=== PATIENT | female | born 1965 | race Caucasian/White ===

== ENCOUNTER 2021-02-13 16:41 | Outpatient (REF) | payer BC, SELFPAY ==
[2021-02-13 17:30] LABS: Influenza A PCR NEGATIVE (Negative); Influenza B PCR NEGATIVE (Negative); Resp Syncy Virus RNA Qual PCR NEGATIVE (Negative); SARS COV2 PCR INHOUSE NEGATIVE (Negative)
== END 2021-02-13 16:42 | disposition home or self-care (01) ==
LOC: HO.LNP 16:41
PROVIDERS: Visit Provider Physician Assistant
DX: Z20.822 Contact with and (suspected) exposure to COVID-19 (principal)
CPT/HCPCS: 0241U

== ENCOUNTER 2022-12-15 10:17 | Emergency (ER) | payer BC, SELFPAY ==
--- NOTE | ~2022-12-15 | XR_ITS ---
EXAMINATION: XR SHOULDER, LEFT CLINICAL INFORMATION: Pain COMPARISON: None available. TECHNIQUE: Three views of the left shoulder. FINDINGS: No acute fracture, subluxation or suspicious focal lesion. No abnormal erosion. Equivocal trace soft tissue calcification. Trace linear opacity in the periphery of the left midlung could be atelectasis. XR/XR shoulder LT min 2V IMPRESSION: No fracture or subluxation. Equivocal trace calcific tendinitis
[2022-12-15 10:19] VITALS: BP 158/86; PULSE 98; RESP 18; TEMP 36.8; O2SAT 97; BMI 30.3
--- NOTE | 2022-12-15 10:44 | ED.EXTPRO ---
HPI - Extremity Problem General Chief complaint: Extremity Injury, Upper Stated complaint: L shoulder pain Time Seen by Provider: 12/15/22 10:43 Source: patient, RN notes reviewed and old records reviewed Mode of arrival: ambulatory History of Present Illness HPI Narrative: 57-year-old female with a past medical history of frozen shoulder presenting to the ED complaining of left neck/trapezius pain radiating to left shoulder since waking yesterday morning. Reports pain worse with movement and palpation. Admits to intermittent paresthesias. Took 800mg of Motrin without relief. Admits symptoms are similar to prior frozen shoulder however persistent. Denies known injury/trauma or fall, numbness, weakness, chest pain/shortness of breath, [place] Complaint: extremity pain Related Data Home Medications Medication Instructions Recorded Confirmed No Known Home Meds 02/13/21 02/13/21 Allergies Allergy/AdvReac Type Severity Reaction Status Date / Time codeine Allergy Mild sensativity Verified 12/15/22 10:24 Review of Systems Review of Systems: Constitutional: No Fever, No Chills ENT/Mouth: No Ear Pain, No Nasal Congestion, No sore throat, No Rhinorrhea, No Swallowing Difficulty Cardiovascular: No Chest Pain, No SOB Respiratory: No Cough, No Sputum Gastrointestinal: No Nausea, No Vomiting, No Diarrhea, No Constipation, No Abdominal pain Genitourinary: No Dysuria, No Urinary Frequency, No Flank Pain Musculoskeletal: +joint pain, No Myalgias, No Joint Swelling Skin: No Skin Lesions, No rash Neuro: No Weakness, No Numbness, + Paresthesias Yes all other systems are reviewed and are negative Constitutional: Constitutional: Reports as per [facility] Past Medical History Attestation statement: The following information was validated with the patient. Source: old records reviewed Social History Social History Patient Tobacco Use Status: Never used Tobacco Advance Directives: No Advance Directives Information Provided: No Physical Exam Vital Signs: Vital Signs: Last Vital Signs Temp 98.2 F 12/15/22 10:19 Pulse 98 12/15/22 10:19 Resp 18 12/15/22 10:19 BP 158/86 H 12/15/22 10:19 Pulse Ox 97 12/15/22 10:19 O2 Del Method Room Air 12/15/22 10:19 BMI result Body Mass Index 30.3 Const: General: cooperative, healthy appearing and no acute distress Orientation/consciousness: patient oriented x3 Limitations: no limitations HEENT: Head: Yes normal to inspection and Yes atraumatic Ears: hearing grossly normal bilaterally General nose exam: Normal external nose present Face and sinus: Yes normal facial exam Eyes: General: appearance normal, both eyes and all related structures EOM: EOMs intact bilaterally Neck: Other: No midline cervical spinous tenderness. + left-sided cervical paraspinal and trapezius muscle tenderness to palpation reproducing subjective complaints Neck: Yes normal visual inspection, Yes no meningeal signs, No anterior neck swelling and No torticollis Resp: Effort & Inspection: normal respiratory effort and no respiratory distress Cardio: Rate: regular rate Peripheral pulses: radial pulses present and ulnar radial pulses present Back/Spine/Pelvis: Other: No midline cervical/thoracic/lumbar spinous tenderness/step-off or deformity Skin: Rashes: no rashes Wounds: no wounds Neuro: General: patient oriented x3, tone normal and no meningeal signs Cranial nerves: Yes CN's II-XII intact bilaterally Gait exam (Neuro): Normal gait present Extrem: Other: Left shoulder without noted deformity. +deltoid tenderness. No erythema/swelling. Pain elicited with ROM > abduction. NV intact distally General: Yes normal to inspection Course Course Course Narrative: XR shoulder LT min 2V IMPRESSION: No fracture or subluxation. Equivocal trace calcific tendinitis Results discussed with patient including worrisome signs and symptoms and strict return precautions, and when to return to the emergency department. They verbalized understanding and feel safe for discharge at this time. Medical Decision Making Medical Decision Making MDM Narrative: 57-year-old female with a past medical history of frozen shoulder presenting to the ED complaining of left neck/trapezius pain radiating to left shoulder since waking yesterday morning. On exam vital signs stable, NAD, nontoxic appearing, no midline spinous tenderness, + left-sided cervical paraspinal and left trapezius/left shoulder tenderness to palpation. ROM intact with pain. Neurovascularly intact. Concern for MSK pain/strain and spasming vs tendinitis or bursitis. Low suspicion for fracture, frozen shoulder, shoulder separation or septic joint. Lower suspicion for ACS plan: EKG, x-ray Please refer to course for remaining clinical decision making, interpretation of labs/imaging results, and discussions with consultants and/or family members. Differential Diagnosis Differential Diagnoses: The differential diagnosis associated with the presentation includes As above Independent Interpretation I performed an independent interpretation of an: EKG (My interpretation EKG is normal sinus rhythm at a rate of 85. QRS 90. QTC 428. No STEMI. No available priors to compare ) Radiology Impression Discussion of test interpretation with radiology: I have reviewed the radiologist's reading. External Record Review External record reviewed: Inpatient record, Office record, Outpatient record, Prior outpatient labs, Prior outpatient radiology, Primary care record and Outside ED record Tests considered The following testing was considered but not selected: As above Prescription Management I considered prescription management with: Pain Medication Discharge Plan Discharge Clinical Impression: Acute shoulder pain Patient Disposition: Home, Self-Care Instructions: Shoulder Pain (ED) Additional Instructions: Your pain is likely musculoskeletal Flexeril is a muscle relaxer, take at night as it makes you drowsy, do not drive, drink alcohol, or operate machinery while taking it Continue taking Motrin & Lidoderm patches In addition take Tylenol at home If symptoms persist or worsen, pain becomes unbearable, you developed urinary retention or incontinence, or weakness return to the ED Prescriptions: No Action No Known Home Meds Referrals: [facility] [Provider Group]
--- NOTE | 2022-12-15 10:51 | ECG_ITS ---
Test Reason : L SHOULDER PAIN Blood Pressure : / mmHG Vent. Rate : 085 BPM Atrial Rate : 085 BPM P-R Int : 158 ms QRS Dur : 090 ms QT Int : 360 ms P-R-T Axes : 034 -19 003 degrees QTc Int : 428 ms Normal sinus rhythm Normal ECG No previous ECGs available Referred By: Jennifer Moore Electronically Signed By:LANDON ÁLVAREZ MD
== END 2022-12-15 12:24 | disposition home or self-care (01) ==
PROVIDERS: Emergency Provider Internal Medicine; PCP Internal Medicine
DX: M25.512 Pain in left shoulder (principal)
CPT/HCPCS: 73030; 93005; 99283; 99284

== ENCOUNTER 2023-06-02 13:22 | Emergency (ER) | payer OTHER, SELFPAY ==
--- NOTE | ~2023-06-02 | XR_ITS ---
EXAMINATION: XR CHEST CLINICAL INFORMATION: Left posterior chest/shoulder discomfort. Chest pain. COMPARISON: None available. TECHNIQUE: Frontal view of the chest was obtained. FINDINGS: Slightly rotated positioning. Cardiac and mediastinal silhouette is within normal limits, accounting for positioning/technique. Slight elevation of the right hemidiaphragm. Linear opacities in bilateral lower lungs, could reflect atelectasis/scarring. Mild bronchovascular crowding in the medial aspect of the right lower lung, with mild hazy opacities which could reflect atelectasis or infiltrate. No effusion. No pulmonary edema. No significant pneumothorax is identified. No acute displaced rib fractures seen. XR/XR chest 1V IMPRESSION: Linear opacities in bilateral lower lungs could reflect atelectasis/scarring. Mild right lower lung bronchovascular crowding with hazy opacities which could reflect atelectasis or infiltrate.
--- NOTE | ~2023-06-02 | XR_ITS ---
EXAMINATION: XR SHOULDER, LEFT CLINICAL INFORMATION: Shoulder discomfort COMPARISON: X-ray 12/15/2022 TECHNIQUE: AP external rotation, Grashey, scapular Y, and axillary views of the left shoulder. FINDINGS: No acute fracture or dislocation. Glenohumeral and acromioclavicular alignment is anatomic with normal joint space. No soft tissue calcification seen. Previously seen trace calcification superior to the greater tuberosity is not clearly visualized in today's study.. XR/XR shoulder LT min 2V IMPRESSION: No evidence of acute osseous abnormality.
[2023-06-02 13:42] VITALS: BP 151/87; PULSE 108; RESP 20; TEMP 37.1; O2SAT 98; BMI 34.7
--- NOTE | 2023-06-02 13:49 | ECG_ITS ---
Test Reason : CHEST PAIN Blood Pressure : / mmHG Vent. Rate : 102 BPM Atrial Rate : 102 BPM P-R Int : 156 ms QRS Dur : 072 ms QT Int : 306 ms P-R-T Axes : 027 -15 -13 degrees QTc Int : 398 ms Sinus tachycardia Anterolateral infarct , age undetermined Abnormal ECG When compared with ECG of 15-DEC-2022 10:57, Anterolateral infarct is now Present Nonspecific T wave abnormality now evident in Lateral leads Referred By: Jose Varner Electronically Signed By:Hang Arzola
--- NOTE | 2023-06-02 13:59 | ED.GENADULT ---
HPI - General Adult General Chief complaint: Chest Pain Stated complaint: L shoulder/arm pain no inj Time Seen by Provider: 06/02/23 16:05 Source: patient, RN notes reviewed and old records reviewed Mode of arrival: ambulatory Limitations: no limitations History of Present Illness HPI narrative: 58-year-old female presents for evaluation of left shoulder pain. She reports the pain started at 10:30 a.m. this morning while she was sitting in nondenominational The pain is worse with turning her head to the left and taking a deep breath The pain radiates to her left upper back and her left chest Currently the patient's pain is 6/10 She denies any history of coronary artery disease. She states that yesterday she was lifting a ?100 lb Scrabble board that is a decorations. ? Denies any fevers, chills, coughing Related Data Previous Rx's ?Medication ?Instructions ?Recorded acetaminophen 500 mg tablet 500 mg PO Q6H PRN fever or pain 12/15/22 (Tylenol Extra Strength) #14 tabs cyclobenzaprine 5 mg tablet 5 mg PO Q8H PRN pain (scale score 12/15/22 7-10) 5 days #14 tabs lidocaine 5 % topical patch 1 patch topical DAILY PRN pain #30 12/15/22 (Lidoderm) ea azithromycin 250 mg tablet See Rx Instructions PO .COMPLEX #6 06/02/23 tabs Allergies Allergy/AdvReac Type Severity Reaction Status Date / Time codeine Allergy Mild sensativity Verified 06/02/23 13:49 Review of Systems Constitutional: Constitutional: Denies body ache(s), Denies chills and Denies fever(s) ENT: Denies vertigo, Denies dizziness and Denies sore throat Cardiovascular: Cardiovascular: Reports chest pain and Denies dyspnea Respiratory: Respiratory: Denies cough, Reports pain on inspiration and Denies dyspnea Gastrointestinal: Gastrointestinal: Denies abdominal pain, Denies nausea and Denies vomiting Musculoskeletal: Musculoskeletal: Reports back pain, Reports limited range of motion and Reports radiating pain into limb Integumentary/Breasts: Skin/Breast: Denies rash Neurologic: Denies vertigo and Denies dizziness PMFSH Social History Social History Patient Tobacco Use Status: Never used Tobacco Smoked in Last 30 Days: No Advance Directives: No Advance Directives Information Provided: No Physical Exam ED Vital Signs: Vital Signs - 24 hr 06/02/23 13:42 06/02/23 15:25 06/02/23 18:00 Temperature 98.8 F 98.6 F 98.5 F Pulse Rate 108 H 110 H 118 H Respiratory Rate 20 16 16 Blood Pressure 151/87 H 166/96 H 149/96 H Pulse Oximetry 98 95 95 Oxygen Delivery Method Room Air Room Air Room Air 06/02/23 18:06 Temperature 98.5 F Pulse Rate 118 H Respiratory Rate 16 Blood Pressure 149/96 H Pulse Oximetry 95 Oxygen Delivery Method Room Air BMI result Body Mass Index 34.7 Const General: healthy appearing, comfortable, no acute distress, alert and awake Nutritional Appearance: well nourished Orientation/consciousness: patient oriented x3 HENMT Head: Yes normocephalic and Yes atraumatic Eyes Eyelids: Yes eyelids normal Conjunctivae: conjunctivae normal Sclerae: sclerae normal Corneas: corneas normal Pupils: Equal, round and reactive pupils present EOM: EOMs intact bilaterally Neck Neck: Yes full ROM Chest Other: Nontender to palpation in the left chest wall Chest palpation & inspection: normal inspection of the chest and no crepitus Resp Effort & Inspection: normal respiratory effort, able to speak in complete sentences, no audible wheezes and not labored Auscultation: clear to auscultation bilaterally Cardio Rate: regular rate Rhythm: regular rhythm GI Inspection: No distended Palpation (GI): Soft to palpation, not firm, nontender, no guarding and not rigid Back/Spine/Pelvis Other: There is no tenderness to the left trapezius muscle group or left shoulder.. However, pain is elicited in these areas with the patient rotating her head to the left Skin General skin exam: elasticity normal Neuro General: patient oriented x3 Cranial nerves: Yes Equal, round and reactive pupils present and Yes Bilaterally intact EOM present Cognition (Neuro): normal cognition Extrem Other: Moving all extremities well without any obvious deformities Course Course Course Narrative: RME: 58-year-old female presents to ED for left shoulder pain radiating down left arm and into left chest described as tingling and pain on range of motion. Patient denies any history of heart attack diabetes high blood pressure. Due to age labs EKG troponins ordered. Reevaluation(s) Reevaluation #1: Patient's repeat troponin is also undetectable. She has no respiratory symptoms. However given that her x-ray showed possible atelectasis versus infiltrate in the right lower lobe, will prescribe the patient a Z-Daniel. I encouraged the patient to avoid starting it unless she develops fever, cough or shortness of breath. She will follow-up with the doctor regarding her mildly elevated high blood pressure Time: 17:49 Medications Administered Discontinued Medications Generic Name Dose Route Start Last Admin Trade Name Janeen PRN Reason Stop Dose Admin Ibuprofen 600 mg 06/02/23 16:53 06/02/23 17:06 Ibuprofen 600 Mg Tablet PO 06/02/23 16:54 600 mg ONCE ONE Administration Medical Decision Making Medical Decision Making [facility] Narrative: 58-year-old female presents for evaluation of chest pain. Her pain is reproducible with movement but not palpation. Initial EKG shows sinus tachycardia to [address] segment elevations or depressions. History and exam is most consistent musculoskeletal origin. Initial troponin negative, chest x-ray shows mild right lower lobe atelectasis versus infiltrate. She has no respiratory symptoms. I have a low suspicion that pneumonia is the cause of her symptoms. All of her symptoms are left upper chest/back. Differential Diagnosis Differential Diagnoses: The differential diagnosis associated with the presentation includes Chest wall strain Muscle strain ACS less likely Bronchitis Pneumonia Admission/Observation Consideration of admission/observation: Escalation of care including admission/observation considered Patient considered for admission but was discharged upon ruling out for ACS Lab Data [facility] Lab Attestation statement: I reviewed the patient's lab results. Very mild leukocytosis to 10.9 K. No anemia. Normal platelet count. No electrolyte abnormalities. Troponin negative 06/02/23 14:02 06/02/23 14:02 Labs: Lab Results 06/02/23 06/02/23 Range/Units 14:02 17:02 WBC 10.9 H (4.8-10.8) X10*3/uL RBC 4.67 (4.20-5.50) X10*6/uL Hgb 13.5 (12.0-16.0) g/dl Hct 40.4 (37.0-47.0) % MCV 86.5 (80.0-98.0) fL MCH 28.9 (27.0-33.0) pg MCHC 33.4 (31.0-35.0) g/dl RDW 13.7 (11.0-16.0) % Plt Count 290 (160-400) X10*3/uL MPV 9.0 L (9.4-12.3) fL Immature Gran % (Auto) 0.4 (0.0-0.4) % Neut % (Auto) 70.4 (45-73) % Lymph % (Auto) 23.0 (20-40) % Young % (Auto) 4.3 (2-11) % Eos % (Auto) 1.2 (0-4) % Baso % (Auto) 0.7 (0-2) % Lymph # (Auto) 2.5 (1.2-4.9) X10*3/uL Young # (Auto) 0.5 (0.1-1.2) X10*3/uL Eos # (Auto) 0.1 (0.0-0.4) X10*3/uL Baso # (Auto) 0.1 (0.0-0.2) X10*3/uL Abs Immat Gran (auto) 0.04 H (0.00-0.03) X10*3/uL Absolute Neuts (auto) 7.7 (2.0-8.3) x10*3/uL Absolute Nucleated RBC 0.000 (0.0-0.012) X10*3/uL Nucleated RBC % (auto) 0.0 (0.0-0.2) /100WBC PT 11.0 L (11.1-13.3) SEC INR 0.9 (0.9-1.1) APTT 33.1 (26.0-36.8) SEC Sodium 141 (135-145) mmol/L Potassium 3.7 (3.3-5.1) mmol/L Chloride 106 (96-108) mmol/L Carbon Dioxide 25 (22-29) mmol/L Anion Gap 14 (12-20) BUN 18 H (9-16) mg/dL Creatinine 0.91 (0.5-1.4) mg/dL Estim Creat Clear Calc 77.5 Estimated GFR > 60 Random Glucose 97 (60-115) mg/dL Calcium 9.3 (8.4-10.2) mg/dL Total Bilirubin 0.4 (0.0-1.0) mg/dL AST 24 (5-31) U/L ALT 23 (0-31) U/L Alkaline Phosphatase 105 (39-117) U/L Troponin I High Sens < 2.7 < 2.7 (<3.5-17.0) ng/L Total Protein 7.6 (6.5-8.0) g/dL Albumin 4.1 (3.5-5.0) g/dL Independent Interpretation I performed an independent interpretation of an: Plain X-Ray (Agree with Radiology interpretation, mild right lower lobe atelectasis versus developing infiltrate) Radiology Impression Discussion of test interpretation with radiology: I have reviewed the radiologist's reading. (Mild right lower lobe hazy opacities concerning for atelectasis versus infiltrate) Discharge Plan Discharge Clinical Impression: Chest pain Patient Disposition: Home, Self-Care Instructions: Chest Pain (ED) Additional Instructions: Your workup in the ER today was reassuring. Your x-ray did show right lower lobe atelectasis versus infiltrate. I prescribed azithromycin for you to take if you develop cough, shortness of breath or fevers However, I feel it your chest and back pain is most likely related to musculoskeletal strain from heavy lifting yesterday Follow-up with your primary doctor regarding your slightly elevated blood pressure Return for new or worsening symptoms Prescriptions: New azithromycin 250 mg tablet See Rx Instructions .ROUTE .COMPLEX Qty: 6 0RF Rx Instructions: For 250 mg dose pack: take 500 mg today (day 1), then 250 mg for 4 days (days 2-5) No Action acetaminophen [Tylenol Extra Strength] 500 mg tablet 500 mg PO Q6H PRN (Reason: fever or pain) Qty: 14 0RF lidocaine [Lidoderm] 5 % adhesive patch,medicated 1 patch topical DAILY MDD remove after 12 hours PRN (Reason: pain) Qty: 30 0RF Rx Instructions: leave on most painful area for up to 12 hrs cyclobenzaprine 5 mg tablet 5 mg PO Q8H PRN (Reason: pain (scale score 7-10)) 5 Days Qty: 14 0RF Interventions: ED Discharge Assessment Last Done: 06/02/23 18:06 Discharge Date/Time: 06/02/23 18:08 Print Language: [place]
[2023-06-02 14:07] LABS: MANUAL DIFF FLAG NO
[2023-06-02 14:09] LABS: Basophils Absolute Auto 0.1 X10*3/uL (0.0-0.2); Basophils Percent Auto 0.7 % (0-2); Eosinophils Absolute Auto 0.1 X10*3/uL (0.0-0.4); Eosinophils Percent Auto 1.2 % (0-4); Hematocrit 40.4 % (37.0-47.0); Hemoglobin 13.5 g/dl (12.0-16.0); Imm Gran Abs Auto 0.04 X10*3/uL (0.00-0.03); Imm Gran Pct Auto 0.4 % (0.0-0.4); Lymphocytes Absolute Auto 2.5 X10*3/uL (1.2-4.9); Mean Corpuscular HGB Conc 33.4 g/dl (31.0-35.0); Mean Corpuscular Hemoglobin 28.9 pg (27.0-33.0); Mean Corpuscular Volume 86.5 fL (80.0-98.0); Monocytes Absolute Auto 0.5 X10*3/uL (0.1-1.2); Monocytes Percent Auto 4.3 % (2-11); Neutrophils Absolute Auto 7.7 x10*3/uL (2.0-8.3); Neutrophils Percent Auto 70.4 % (45-73); Platelet Count 290 X10*3/uL (160-400); Red Blood Count 4.67 X10*6/uL (4.20-5.50); Red Cell Distribution Width 13.7 % (11.0-16.0); White Blood Count 10.9 X10*3/uL (4.8-10.8)
[2023-06-02 14:17] LABS: INTERNATIONAL NORM RATIO 0.9 (0.9-1.1)
[2023-06-02 14:19] LABS: Partial Thromboplastin Time 33.1 SEC (26.0-36.8)
[2023-06-02 14:23] LABS: Alanine Aminotransferase 23 U/L (0-31); Albumin Level 4.1 g/dL (3.5-5.0); Alkaline Phosphatase 105 U/L (39-117); Anion Gap 14 (12-20); Aspartate Amino Transferase 24 U/L (5-31); Bilirubin Total 0.4 mg/dL (0.0-1.0); Blood Urea Nitrogen 18 mg/dL (9-16); Calcium 9.3 mg/dL (8.4-10.2); Carbon Dioxide 25 mmol/L (22-29); Chloride 106 mmol/L (96-108); Creatinine Clr Calc Pharmacy 77.5; Estimated Glomerular Filt Rate > 60; Glucose Random 97 mg/dL (60-115); Potassium 3.7 mmol/L (3.3-5.1); Sodium 141 mmol/L (135-145); Total Protein 7.6 g/dL (6.5-8.0)
[2023-06-02 14:36] LABS: Troponin-I High Sensitivity < 2.7 ng/L (<3.5-17.0)
[2023-06-02 15:25] VITALS: BP 166/96; PULSE 110; RESP 16; TEMP 37; O2SAT 95
[2023-06-02] MEDS: Ibuprofen 600 MG TABLET PO (17:06)
[2023-06-02 17:42] LABS: Troponin-I High Sensitivity < 2.7 ng/L (<3.5-17.0)
[2023-06-02 18:00] VITALS: BP 149/96; PULSE 118; RESP 16; TEMP 36.9; O2SAT 95
--- NOTE | 2023-06-02 18:05 | PC.NURSE ---
pt a&o x4, pleasant, calm, and cooperative. pt reporting l chest/shoulder/upper back pain/tightness. medicated per mar with ibuprofen. pt ambulates independently. resting quietly on stretcher in no apparent distress. rr even/unlabored. call pineda within reach. plan of care ongoing.
[2023-06-02 18:06] VITALS: BP 149/96; PULSE 118; RESP 16; TEMP 36.9; O2SAT 95
== END 2023-06-02 18:08 | disposition home or self-care (01) ==
PROVIDERS: Physician Assistant; Emergency Provider Emergency Medicine; PCP Internal Medicine
DX: S49.92XA Unspecified injury of left shoulder and upper arm, initial encounter (principal); R07.89 Other chest pain; M54.50 Low back pain, unspecified; I25.10 Atherosclerotic heart disease of native coronary artery without angina pectoris; M25.512 Pain in left shoulder; X58.XXXA Exposure to other specified factors, initial encounter; Y93.9 Activity, unspecified; Y92.22 Religious institution as the place of occurrence of the external cause; Y99.8 Other external cause status; Z79.899 Other long term (current) drug therapy
CPT/HCPCS: 36415; 71045; 73030; 80053; 84484; 85025; 85610; 85730; 93005; 99283; 99285

== ENCOUNTER → 2023-06-02 13:49 | Outpatient (BNV) | payer OTHER, SELFPAY | PROVIDERS: Emergency Provider Emergency Medicine; PCP Internal Medicine; Visit Provider Internal Medicine Cardiovascular Disease | DX: R07.9 Chest pain, unspecified (principal) | CPT/HCPCS: 93010 ==

== ENCOUNTER 2023-11-01 18:49 | Emergency (ER) | payer OTHER, SELFPAY ==
--- NOTE | ~2023-11-01 | CT_ITS ---
EXAMINATION: CT ANGIOGRAM CHEST CLINICAL INFORMATION: Left-sided pain, abnormal d-dimer COMPARISON: Chest x-ray 06/02/2023 TECHNIQUE: Multiple axial images were obtained through the chest after the administration of 75 mL of Omnipaque 350 intravenous contrast. Extensive vascular post-processing including two-dimensional and three-dimensional reformatted images were created and reviewed on an independent workstation. This CT examination was performed using dose optimization techniques as appropriate, variously including the following: *Automated exposure control *Adjustment of mA and/or kV according to patient size (this includes techniques or standardized protocols for targeted exams where dose is matched to indication/reason for exam; i.e. extremities or head) *Use of iterative reconstruction technique DLP: 375 mGy-cm FINDINGS: No filling defects are seen in the main, lobar, or segmental pulmonary arteries to suggest the presence of pulmonary emboli. The aorta is unremarkable. Limited detailed evaluation of the lung parenchyma due to respiratory motion artifact. Subsegmental atelectasis noted in the mid to lower lungs. No pneumothorax or pleural effusion. The visualized thyroid gland is unremarkable. There are subcentimeter mediastinal lymph nodes within the range of normal variation. Borderline cardiomegaly without pericardial effusion. No axillary lymphadenopathy is present. Visualized portions of the upper abdomen are within normal limits. No acute osseous findings are seen. Multilevel endplate osteophytes in the spine. CT/CT angio chest PE protocol IMPRESSION: No pulmonary embolus identified. Borderline cardiomegaly. Electronically signed by: Myron Sosa MD 11/02/2023 12:12 AM EDT
[2023-11-01 19:22] VITALS: BP 169/84; PULSE 86; RESP 18; TEMP 37; O2SAT 96; BMI 32.9
--- NOTE | 2023-11-01 19:54 | ED.GENADULT ---
HPI - General Adult General Chief complaint: Back Pain/Injury Stated complaint: back pain Time Seen by Provider: 11/01/23 21:56 History of Present Illness ED Provider: Jerel JIMENEZ narrative: The patient is a 58-year-old female who has been having problems with left upper back pain for several months. She was seen here in May for left upper back pain. It was felt to be musculoskeletal and she was discharged. She says that she has subsequently followed up with her primary care doctor at [facility] in [place] and she has also seen a chiropractor. She says that she has not had any particular relief from any medications or any chiropractic treatment. Pain has gotten particularly worse over the last 2 days. She feels it is just to the left of her spine in the lower posterior chest. It is worse with certain movements. Bothers her a great deal during the day. She says that she finds the pain unbearable. She has not had any fever, sweats, chills. The patient says that her daughter encouraged her to come to the hospital tonight because of the pain. The patient says that her recently and she has no additional family and she says ?it is just me and my daughter. ? Related Data Previous Rx's ?Medication ?Instructions ?Recorded acetaminophen 500 mg tablet 500 mg PO Q6H PRN fever or pain 12/15/22 (Tylenol Extra Strength) #14 tabs cyclobenzaprine 5 mg tablet 5 mg PO Q8H PRN pain (scale score 12/15/22 7-10) 5 days #14 tabs lidocaine 5 % topical patch 1 patch topical DAILY PRN pain #30 12/15/22 (Lidoderm) ea azithromycin 250 mg tablet See Rx Instructions PO .COMPLEX #6 06/02/23 tabs ibuprofen 600 mg tablet 600 mg PO Q6H PRN pain #14 tabs 11/02/23 morphine 15 mg immediate release 15 mg PO Q6H PRN pain #12 tabs 11/02/23 tablet nitrofurantoin 100 mg PO BID #10 caps 11/02/23 monohydrate/macrocrystals 100 mg capsule (Macrobid) Allergies Allergy/AdvReac Type Severity Reaction Status Date / Time codeine Allergy Mild sensativity Verified 11/01/23 19:24 Review of Systems Review of Systems: Yes all other systems are reviewed and are negative PMFSH Social History Social History Patient Tobacco Use Status: Never used Tobacco Advance Directives: No Advance Directives Information Provided: No Do you have a plan to hurt others: No Plan Physical Exam ED Vital Signs: Vital Signs - 24 hr 11/01/23 19:22 11/01/23 22:54 11/02/23 00:56 Temperature 98.6 F 97.6 F 97.7 F Pulse Rate 86 89 84 Respiratory Rate 18 20 18 Blood Pressure 169/84 H 158/63 H 143/79 H Pulse Oximetry 96 99 96 Oxygen Delivery Method Room Air Room Air Room Air BMI result Body Mass Index 32.9 Const Other: The patient is a 58-year-old woman who is awake and alert. She does not appear obviously acutely ill or in obvious acute discomfort. She does not appear in any respiratory distress. HENMT Other: Face is symmetrical. Mucous membranes moist. Eyes Other: Pupils are round equal, conjunctivae are clear, extraocular movements are intact. Neck Other: Moving her neck easily. No apparent JVD. Resp Other: No increased work of breathing. No apparent discomfort with taking a deep breath. Effort & Inspection: normal respiratory effort Auscultation: clear to auscultation bilaterally Cardio Rate: regular rate Rhythm: regular rhythm Heart sounds: S1 normal heart sound present and S2 normal heart sound present GI Other: Abdomen is soft and nontender Skin Other: skin is dry and unremarkable Neuro Other: the patient is awake and alert. She has an anxious demeanor but a normal mental status. Cranial nerves are intact. She moves her extremities normally. She has a normal gait. She seems grossly neurologically intact. Extrem Other: The patient has some left-sided paraspinous tenderness in the region of the lower thoracic spine. No midline vertebral tenderness. No calf swelling or tenderness. No calf asymmetry. No peripheral edema. Course Course Course Narrative: RME performed by Margaret Chau PA-C. Patient is a 58 year old assigned female at presenting to the emergency department with back and chest pain. Patient states this has been going on for months and it is not improving. Patient states that she has lidocaine patches for her back but they are not helping. Detailed physical exam and review of systems are deferred to the vermin exterminator. EKG, labs, imaging, and swabs ordered. Patient placed back in the waiting room pending room availability and results. Medications Administered Discontinued Medications Generic Name Dose Route Start Last Admin Trade Name Janeen PRN Reason Stop Dose Admin Iohexol 75 ml 11/01/23 23:30 11/01/23 23:30 Iohexol 350 Mg/Ml 100 Ml Infus..Btl IV 11/01/23 23:31 75 ml ONCE ONE Administration Ketorolac Tromethamine 30 mg 11/01/23 22:09 11/01/23 22:15 Ketorolac Tromethamine 30 Mg/Ml Vial IM 11/01/23 22:10 30 mg ONCE ONE Administration Morphine Sulfate 15 mg 11/02/23 00:45 11/02/23 01:11 Morphine Sulfate Immed Release 15 Mg Tablet PO 11/02/23 00:46 Not Given ONCE ONE Nitrofurantoin Macrocrystals 100 mg 11/02/23 01:00 11/02/23 01:08 Nitrofurantoin Monohyd/M-Cryst 100 Mg Capsule PO 11/02/23 01:01 100 mg ONCE ONE Administration Medical Decision Making Medical Decision Making [facility] Narrative: The patient is a 58-year-old woman who presents for evaluation of pain in the left lower posterior chest. On exam she seems to have fairly localized tenderness in the region of the left paraspinous muscles of the lower thoracic spine. Clinically this seems to be most likely a musculoskeletal pain. The patient seemed to describe the pain as unbearable. She seems to have been struggling with this pain, or similar pains, for some time. She was seen here in May for a pain in the left upper posterior back. She says that since that ER visit she has followed up with her PCP and with a chiropractor. She says she has had massages. She says that she has tried several kinds of medications including cyclobenzaprine. She says that she has not really had any sense of relief from any of the interventions or therapies she has tried. She says that over the last 2 days the pain seems to have become more localized to the left posterior chest and the pain is also become unbearable. The patient's vital signs showed some hypertension but no tachycardia or hypoxia or fever. EKG shows normal sinus rhythm 93 beats per minute. It is a normal EKG. CBC shows a white blood count of 11.7 with normal differential. Basic metabolic panel is unremarkable. CRP is minimally elevated at 2.0. A D-dimer was somewhat elevated at 330. Troponin is normal. A CT pulmonary angiogram shows no evidence of pulmonary embolism or any other finding that might correlate with her pain in the left lower thoracic back. Overall my impression remains that the patient's pain is musculoskeletal. It seems to be primarily a muscular pain given the absence of any osseous findings on CT scan. The patient will be advised to follow-up with her PCP. It might be good for her to follow up with a head inspector. She continued to complain of the pain as being unbearable and wondered what she could do about the pain. She had been given a dose of ketorolac in the emergency room. She has tried cyclobenzaprine without relief. She says ibuprofen does not help very much. She was reluctant to consider opioids but her daughter encouraged her to take morphine prescription. The patient had a mildly abnormal urinalysis. She admits to feeling like she might have some mild urinary symptoms. She will therefore be treated for a possible UTI with Macrobid. She will be discharged follow-up with a primary care doctor. Lab Data 11/01/23 20:16 11/01/23 20:16 Labs: Lab Results 11/01/23 11/01/23 Range/Units 20:16 22:21 WBC 11.7 H (4.8-10.8) X10*3/uL RBC 4.49 (4.20-5.50) X10*6/uL Hgb 13.1 (12.0-16.0) g/dl Hct 39.0 (37.0-47.0) % MCV 86.9 (80.0-98.0) fL MCH 29.2 (27.0-33.0) pg MCHC 33.6 (31.0-35.0) g/dl RDW 13.9 (11.0-16.0) % Plt Count 289 (160-400) X10*3/uL MPV 9.5 (9.4-12.3) fL Immature Gran % (Auto) 0.3 (0.0-0.4) % Neut % (Auto) 63.9 (45-73) % Lymph % (Auto) 27.8 (20-40) % Owen % (Auto) 5.7 (2-11) % Eos % (Auto) 1.5 (0-4) % Baso % (Auto) 0.8 (0-2) % Lymph # (Auto) 3.3 (1.2-4.9) X10*3/uL Owen # (Auto) 0.7 (0.1-1.2) X10*3/uL Eos # (Auto) 0.2 (0.0-0.4) X10*3/uL Baso # (Auto) 0.1 (0.0-0.2) X10*3/uL Abs Immat Gran (auto) 0.03 (0.00-0.03) X10*3/uL Absolute Neuts (auto) 7.5 (2.0-8.3) x10*3/uL Absolute Nucleated RBC 0.000 (0.0-0.012) X10*3/uL Nucleated RBC % (auto) 0.0 (0.0-0.2) /100WBC ESR 28 H (0-20) MM/HR D-Dimer High Sensitivty 330 NG/ML Sodium 139 (135-145) mmol/L Potassium 4.1 (3.3-5.1) mmol/L Chloride 106 (96-108) mmol/L Carbon Dioxide 25 (22-29) mmol/L Anion Gap 12 (12-20) BUN 18 H (9-16) mg/dL Creatinine 0.92 (0.5-1.4) mg/dL Estim Creat Clear Calc 74.6 Estimated GFR > 60 Random Glucose 102 (60-115) mg/dL Calcium 9.1 (8.4-10.2) mg/dL Magnesium 2.6 (1.6-2.6) mg/dL Total Bilirubin 0.2 (0.0-1.0) mg/dL AST 21 (5-31) U/L ALT 19 (0-31) U/L Alkaline Phosphatase 84 (39-117) U/L Troponin I High Sens < 2.7 (<3.5-17.0) ng/L C-Reactive Protein 2.00 H (< or = 0.50) mg/dL Total Protein 7.5 (6.5-8.0) g/dL Albumin 4.2 (3.5-5.0) g/dL Urine Color Yellow Urine Appearance Clear Urine pH 6.5 (5.0-9.0) Ur Specific Weldon 1.010 (1.005-1.025) Urine Protein Negative (Neg-Trace) mg/dL Urine Glucose (UA) Negative (Negative) mg/dL Urine Ketones Negative (Negative) mg/dL Urine Blood Negative (Negative) Urine Nitrite Negative (Negative) Ur Leukocyte Esterase Small (1+) H (Negative) Urine RBC 0-2 (0-2) /HPF Urine WBC 6-10 H (0-5) /HPF Ur Squamous Epith Cells 0-2 (0-2) /HPF Urine Bacteria None Seen (None Seen) Hyaline Casts 0-2 (0-2) /LPF Influenza Type A (PCR) NEGATIVE (Negative) Influenza Type B (PCR) NEGATIVE (Negative) RSV RNA Qual (PCR) NEGATIVE (Negative) SARS-CoV-2 RNA (RT-PCR) NEGATIVE (Negative) Discharge Plan Discharge Clinical Impression: Left-sided thoracic back pain, Urinary tract infection Patient Disposition: Home, Self-Care Instructions: Urinary Tract Infection in Women (ED) Additional Instructions: Your testing today is very reassuring. There is no sign of a heart attack or blood clot or other acutely dangerous process. I think it might be good for you to see some kind of musculoskeletal specialist. Please talk to your regular doctor about being referred to a head inspector. In the meantime you may take 2 extra-strength acetaminophen tablets up to 3 times a day (total of 3000 mg per day). Additionally I have sent a prescription for ibuprofen 600 mg tablets. You may use these every 6 hours as needed. If necessary I have also sent a prescription for morphine tablets that you may trial. No driving on morphine. Please contact your regular doctor's office on Saturday to make a follow up appointment to discuss these symptoms further. Return to see room if significantly worse. Prescriptions: New ibuprofen 600 mg tablet 600 mg PO Q6H PRN (Reason: pain) Qty: 14 0RF morphine 15 mg tablet 15 mg PO Q6H PRN (Reason: pain) Qty: 12 0RF Rx Instructions: Partial Fill upon patient request. nitrofurantoin monohyd/m-cryst [Macrobid] 100 mg capsule 100 mg PO BID Qty: 10 0RF Rx Instructions: must administer with a meal/food No Action acetaminophen [Tylenol Extra Strength] 500 mg tablet 500 mg PO Q6H PRN (Reason: fever or pain) Qty: 14 0RF lidocaine [Lidoderm] 5 % adhesive patch,medicated 1 patch topical DAILY MDD remove after 12 hours PRN (Reason: pain) Qty: 30 0RF Rx Instructions: leave on most painful area for up to 12 hrs cyclobenzaprine 5 mg tablet 5 mg PO Q8H PRN (Reason: pain (scale score 7-10)) 5 Days Qty: 14 0RF azithromycin 250 mg tablet See Rx Instructions .ROUTE .COMPLEX Qty: 6 0RF Rx Instructions: For 250 mg dose pack: take 500 mg today (day 1), then 250 mg for 4 days (days 2-5) Referrals: Balwinder Mcwilliams MD [Primary Care Provider] - (thoracic back pain) Interventions: ED Discharge Assessment Last Done: 11/02/23 01:16 Discharge Date/Time: 11/02/23 01:17 Print Language: Estonian
--- NOTE | 2023-11-01 19:55 | ECG_ITS ---
Test Reason : back pain/cp Blood Pressure : / mmHG Vent. Rate : 093 BPM Atrial Rate : 093 BPM P-R Int : 166 ms QRS Dur : 084 ms QT Int : 368 ms P-R-T Axes : 019 -17 010 degrees QTc Int : 457 ms Normal sinus rhythm Normal ECG When compared with ECG of 02-JUN-2023 13:55, Nonspecific T wave abnormality no longer evident in Lateral leads QT has lengthened Referred By: Margaret Chau Electronically Signed By:MIRIAM KABA
--- NOTE | 2023-11-01 20:10 | MHC.EDTECH ---
Patient brought into triage area,EKG taken per order and signed by provider,labs/Sars/urine obtained and sent to lab
[2023-11-01 20:23] LABS: MANUAL DIFF FLAG NO
[2023-11-01 20:25] LABS: Basophils Absolute Auto 0.1 X10*3/uL (0.0-0.2); Basophils Percent Auto 0.8 % (0-2); Eosinophils Absolute Auto 0.2 X10*3/uL (0.0-0.4); Eosinophils Percent Auto 1.5 % (0-4); Hemoglobin 13.1 g/dl (12.0-16.0); Imm Gran Abs Auto 0.03 X10*3/uL (0.00-0.03); Imm Gran Pct Auto 0.3 % (0.0-0.4); Lymphocytes Absolute Auto 3.3 X10*3/uL (1.2-4.9); Lymphocytes Percent Auto 27.8 % (20-40); Mean Corpuscular HGB Conc 33.6 g/dl (31.0-35.0); Mean Corpuscular Hemoglobin 29.2 pg (27.0-33.0); Mean Corpuscular Volume 86.9 fL (80.0-98.0); Mean Platelet Volume 9.5 fL (9.4-12.3); Monocytes Absolute Auto 0.7 X10*3/uL (0.1-1.2); Monocytes Percent Auto 5.7 % (2-11); Neutrophils Absolute Auto 7.5 x10*3/uL (2.0-8.3); Neutrophils Percent Auto 63.9 % (45-73); Platelet Count 289 X10*3/uL (160-400); Red Blood Count 4.49 X10*6/uL (4.20-5.50); Red Cell Distribution Width 13.9 % (11.0-16.0); White Blood Count 11.7 X10*3/uL (4.8-10.8)
[2023-11-01 20:26] LABS: Appearance Urine Clear; Color Urine Yellow; Glucose Urine UA Negative (Negative); Leukocyte Esterase Urine Small (1+) (Negative); Nitrite Urine Negative (Negative); PH 6.5 (5.0-9.0); UMIC TRIGGER UACC YES; Urine Blood Negative (Negative); Urine Ketones Negative (Negative); Urine Protein Negative (Neg-Trace)
[2023-11-01 20:31] LABS: Bacteria Urine None Seen (None Seen); Hyaline Casts Urine 0-2 /LPF (0-2); RBC Urine 0-2 /HPF (0-2); Squamous Epithelial Cell Urine 0-2 /HPF (0-2); UACC Culture Trigger YES
[2023-11-01 20:38] LABS: Alanine Aminotransferase 19 U/L (0-31); Albumin Level 4.2 g/dL (3.5-5.0); Alkaline Phosphatase 84 U/L (39-117); Anion Gap 12 (12-20); Aspartate Amino Transferase 21 U/L (5-31); Bilirubin Total 0.2 mg/dL (0.0-1.0); Blood Urea Nitrogen 18 mg/dL (9-16); Calcium 9.1 mg/dL (8.4-10.2); Carbon Dioxide 25 mmol/L (22-29); Chloride 106 mmol/L (96-108); Creatinine Clr Calc Pharmacy 74.6; Estimated Glomerular Filt Rate > 60; Glucose Random 102 mg/dL (60-115); Magnesium 2.6 mg/dL (1.6-2.6); Potassium 4.1 mmol/L (3.3-5.1); Sodium 139 mmol/L (135-145); Total Protein 7.5 g/dL (6.5-8.0)
[2023-11-01 20:49] LABS: Troponin-I High Sensitivity < 2.7 ng/L (<3.5-17.0)
[2023-11-01 21:01] LABS: Influenza A PCR NEGATIVE (Negative); Influenza B PCR NEGATIVE (Negative); Resp Syncy Virus RNA Qual PCR NEGATIVE (Negative); SARS COV2 PCR INHOUSE NEGATIVE (Negative)
[2023-11-01] MEDS: Ketorolac Tromethamine 30 MG/ML VIAL IM (22:15)
[2023-11-01 22:47] LABS: D Dimer High Sensitivity 330 NG/ML
[2023-11-01 22:54] VITALS: BP 158/63; PULSE 89; RESP 20; TEMP 36.4; O2SAT 99
[2023-11-01 22:56] LABS: Erythrocyte Sedimentation Rate 28 MM/HR (0-20)
[2023-11-01] MEDS: iohexoL 350 MG/ML 100 ML INFUS..BTL 75 ML IV (23:30)
[2023-11-02 00:56] VITALS: BP 143/79; PULSE 84; RESP 18; TEMP 36.5; O2SAT 96
[2023-11-02] MEDS: Nitrofurantoin Monohyd/M-Cryst 100 MG CAPSULE PO (01:08)
--- NOTE | 2023-11-02 01:11 | PC.NURSE ---
Pt refusing the Morphine, states I just took my Ativan 1 hour ago. MD aware. T/w unable to document against Morphine. Morphine not given.
[2023-11-02 01:16] VITALS: BP 0/0; PULSE 0; RESP 0; TEMP -17.7; TEMP 0; O2SAT 0
== END 2023-11-02 01:17 | disposition home or self-care (01) ==
PROVIDERS: Physician Assistant Medical; Emergency Provider Emergency Medicine; PCP Internal Medicine
DX: M54.6 Pain in thoracic spine (principal); N39.0 Urinary tract infection, site not specified; I10 Essential (primary) hypertension; Z03.818 Encounter for observation for suspected exposure to other biological agents ruled out; Z79.899 Other long term (current) drug therapy
CPT/HCPCS: 0241U; 36415; 71275; 80053; 81001; 83735; 84484; 85025; 85379; 85652; 86140; 87086; 87147; 93005; 96372; 99284; J1885; Q9967